=== PATIENT | female | born 1990 | race Two or more races ===

== ENCOUNTER 2021-02-22 09:00 | Outpatient (CLI) | payer OTHER | END 2021-02-22 09:30 | disposition home or self-care (01) | LOC: PPH VACUNA 09:00 | PROVIDERS: ATTEND Emergency Medicine Pediatric Emergency Medicine | DX: Z23 Encounter for immunization (principal) ==

== ENCOUNTER 2024-11-02 08:06 | Outpatient (CLI) | payer OTHER ==
[2024-11-02 09:46] LABS: PH,URINE 6.5 (5.0-8.0); URINE APPEARANCE Clear; URINE BILIRRUBIN Negative (NEGATIVE); URINE BLOOD Negative; URINE COLOR Yellow; URINE GLUCOSE Negative (NEGATIVE); URINE KETONE Negative (NEGATIVE); URINE LEUKOCYTE Negative; URINE NITRATE Negative; URINE PROTEIN Negative (NEGATIVE); URINE UROBILINOGEN 0.2 E.U./dl
[2024-11-02 09:50] LABS: BASO % 0.5 % (0.1-1.2); EOS # 0.09 (0.04-0.54); EOS % 1.6 % (0.7-7.0); HEMATOCRIT 37.6 % (34.1-44.9); HEMOGLOBIN 12.3 g/dL (11.2-15.7); LYMPH # 1.64 (1.18-3.74); LYMPH % 29.2 % (19.3-53.1); MEAN CORPUSCULAR HEMOGLOBIN 27.8 pg (25.6-32.2); MONO # 0.46 (0.24-0.82); MONO % 8.2 % (4.7-12.5); NEUT # 3.37 (1.56-6.13); NEUT % 60.1 % (34.0-71.1); PLATELET COUNT 253 K/uL (163-369); RED BLOOD COUNT 4.43 M/uL (3.93-5.22); RED CELL DISTRIBUTION WIDTH 16.1 % (11.6-14.4)
[2024-11-02 09:53] LABS: URINE BACTERIA 56.2 uL (0.0-1933); URINE EPITHELIAL CELLS 3.4 uL (0.0-38.8)
[2024-11-02 10:02] LABS: URINE WBC 0.3 uL (0.0-23.2)
[2024-11-02 10:23] LABS: ALBUMIN 3.8 gm/dL (3.4-5.0); BILIRUBIN TOTAL 0.7 mg/dL (0.3-1.2); CALCIUM 9.1 mg/dL (8.5-10.1); CHOL HDL RATIO 2.9 (0-5.0); CREATININE SERUM 0.77 mg/dL (0.55-1.02); GFR 85.81; GLOBULINA 3.3 G/DL (2.4-3.5); POTASSIUM 3.71 mEq/L (3.5-5.1); T4 FREE 1.02 NG/ML (0.76-1.46); TOTAL PROTEIN 7.1 gm/dL (6.4-8.2); TSH 3.1 uIU/mL (0.358-3.74)
[2024-11-02 10:40] LABS: FERRITIN 6.2 NG/ML (8-252)
[2024-11-02 11:56] LABS: MANUAL PLATELET COUNT 292
[2024-11-02 13:12] LABS: FOLIC ACID 14.36 ng/ml (4.78-20)
[2024-11-03 09:08] LABS: ANTI THYROID PEROXIDASE < 9 IU/mL (0-34); HEPATITIS C VIRUS ANTIBODY Non Reactive (Non Reactive); HSV I IGG TYPE SPECIFIC Non Reactive (Non Reactive)
[2024-11-03 15:11] LABS: hgb a 97.7 % (96.4-98.8); hgb a2 2.3 % (1.8-3.2); hgb f 0 % (0.0-2.0); hgb s 0 % (0.0)
== END 2024-11-02 08:11 | disposition home or self-care (01) ==
LOC: LAB 08:06
PROVIDERS: ATTEND Internal Medicine Hematology & Oncology
DX: D50.8 Other iron deficiency anemias (principal); D51.3 Other dietary vitamin B12 deficiency anemia; D25.9 Leiomyoma of uterus, unspecified; R79.9 Abnormal finding of blood chemistry, unspecified; R74.02 Elevation of levels of lactic acid dehydrogenase [LDH]; K76.89 Other specified diseases of liver; I10 Essential (primary) hypertension; D55.9 Anemia due to enzyme disorder, unspecified; D51.0 Vitamin B12 deficiency anemia due to intrinsic factor deficiency; E03.8 Other specified hypothyroidism; E06.3 Autoimmune thyroiditis; E03.9 Hypothyroidism, unspecified; E55.9 Vitamin D deficiency, unspecified; E78.9 Disorder of lipoprotein metabolism, unspecified; D50.0 Iron deficiency anemia secondary to blood loss (chronic); N30.00 Acute cystitis without hematuria; N39.0 Urinary tract infection, site not specified; A64 Unspecified sexually transmitted disease; Z11.4 Encounter for screening for human immunodeficiency virus [HIV]; Z11.3 Encounter for screening for infections with a predominantly sexual mode of transmission; B00.9 Herpesviral infection, unspecified